=== PATIENT | male | born 1960 | race Caucasian/White ===

== ENCOUNTER → 2017-05-15 | Outpatient (CLI) | payer OTHER ==
--- NOTE | 2017-05-15 16:08 | RADIOLOGY REPORT PS360 ---
US SOFT TISSUE HEAD/NECK HISTORY: NECK MASS ORDERING PHYSICIAN: Alejo Torres MD PATIENT AGE: 56 years COMPARISON: None FINDINGS: Multiple hypoechoic areas are present in the lateral left neck at the region of the palpable abnormality the largest of which measures 1.7 x 0.9 cm. These are probably related to a chain of lymph nodes with some increased vascularity along the peripheral margin. Consider CT of the neck for further evaluation and confirmation. No cystic areas evident. IMPRESSION: Lymphadenopathy left lateral neck corresponding to palpable abnormality. Recommend CT of the neck without and with contrast for confirmation and to evaluate for deeper lymph nodes which may not be palpable or the source of the adenopathy
== END ==
LOC: RAD 15:17
DX: R22.1 Localized swelling, mass and lump, neck (principal)

== ENCOUNTER → 2017-06-07 | Outpatient (CLI) | payer OTHER ==
[2017-06-07 09:38] LABS: BUN 22 mg/dL (7-18); PROSTATE-SPECIFIC AG SCREEEN 0.3 ng/mL (0.0-4.0)
[2017-06-07 09:41] LABS: GFR (ESTIMATED) 63 ML/MIN (>60)
--- NOTE | 2017-06-07 11:51 | RADIOLOGY REPORT PS360 ---
CHEST(2 VIEWS-NOT PORTABLE) HISTORY: Smoker, left supraclavicular adenopathy SMOKER ORDERING PHYSICIAN: Nehemiah Quinones MD PATIENT AGE: 56 years COMPARISON: None available FINDINGS: There is normal heart size. There is a 4.5 x 5 cm spiculated left hilar mass highly suspicious for malignancy. There is additional fullness of the left hilum likely related to adenopathy. Hyperinflation with hyperattenuation of the lung ayoub consistent with COPD. No effusions. No acute bony anomalies. There is minimal mid thoracic curvature convex right. A bone plate is present of the lower cervical spine. IMPRESSION: 5 cm left hilar mass with left hilar adenopathy consistent with bronchogenic carcinoma. Suggest chest CT with contrast for further evaluation. COPD
--- NOTE | 2017-06-07 11:55 | RADIOLOGY REPORT PS360 ---
US BIOPSY OR PARACENTESIS, US SOFT TISSUE HEAD/NECK HISTORY: LT NECK MASS ORDERING PHYSICIAN: Nehemiah Quinones MD PATIENT AGE: 56 years COMPARISON: 05/15/2017 ULTRASOUND SOFT TISSUE NECK: Prebiopsy ultrasound performed confirming the presence of hypoechoic nodular lesions in the supraclavicular region on the left similar to the previous exam consistent with adenopathy. TECHNIQUE: Following obtaining informed consent, using aseptic technique and local anesthesia with buffered lidocaine, fine-needle aspiration was performed of the nodule of interest using sonographic guidance. 2 passes were made into the nodule with a 25-gauge needle for cytology. 2 passes were then made with a 25-gauge needle for RPMI. Specimen was given to cytology. The patient tolerated the procedure well without evidence of immediate complications and left the ultrasound suite in stable condition. CYTOLOGY:Pending IMPRESSION: Uneventful ultrasound-guided fine-needle aspiration of left supraclavicular nodes
--- NOTE | 2017-06-07 16:48 | RADIOLOGY REPORT PS360 ---
CT SOFT TISSUE NECK W/CONTRAST INDICATION: LT NECK MASS ORDERING PHYSICIAN: Nehemiah Quinones MD PATIENT AGE: 56 years COMPARISON: None TECHNIQUE: Axial images are obtained following the intravenous administration of 75 mg of Isovue-370 . Sagittal and coronal reformatted images are reviewed as well. FINDINGS: There is a chain of nodular opacities in the subcutaneous region of the left neck in the supraclavicular area measuring up to 16 x 12 mm superiorly and 15 9 mm inferiorly with a smaller 7 mm nodule between the 2 consistent with supraclavicular adenopathy. These nodes were sampled by FNA with ultrasound guidance. No other adenopathy is evident. No neck mass. The adenoids are slightly prominent.. There is a small retention cyst in left maxillary sinus inferiorly at 15 mm. The lung apices demonstrates centrilobular and paraseptal emphysematous changes. Mild biapical fibrotic changes are present. It should be noted that a chest x-ray performed on the same day showed a left hilar mass measuring approximately 5 cm highly suspicious for bronchogenic neoplasm. This was not included on the neck CT. Bone plate is present at C5, C6, and C7. IMPRESSION: 1. Mild left supraclavicular adenopathy. 2. Mild prominence of the adenoids. 3. Centrilobular and paraseptal emphysematous changes. There is a 5 cm left hilar mass noted on the chest x-ray highly suspicious for neoplasm which is not included on this exam
== END ==
LOC: RAD 08:25
PROVIDERS: Physician Assistant
DX: R59.1 Generalized enlarged lymph nodes (principal); R49.0 Dysphonia; Z72.0 Tobacco use
CPT/HCPCS: G0103

== ENCOUNTER → 2017-06-15 | Outpatient (CLI) | payer OTHER ==
[2017-06-15 14:24] LABS: BUN 15 mg/dL (7-18)
[2017-06-15 14:27] LABS: GFR (ESTIMATED) 69 ML/MIN (>60)
--- NOTE | 2017-06-17 08:27 | RADIOLOGY REPORT PS360 ---
CT CHEST W/ CONTRAST COMPARISON: PA and lateral chest 06/07/2017 HISTORY: Abnormal chest x-ray TECHNIQUE: Multiaxial scans obtained from the thoracic inlet the hemidiaphragms and were performed with IV contrast. Sagittal and coronal reformats were evaluated as well. FINDINGS: There is mild hyperexpansion lung ayoub with findings of mild centrilobular emphysema.. There is a large left suprahilar mass extending into the superior mediastinum. The mass extends in the AP window as well. At the level the AP window the mass measures 7.5 x 6.6 cm on the axial image x 9.5 cm superior inferior dimension. There are couple mildly enlarged nodes in the AP window. There are slightly enlarged subcarinal nodes as well. Cardiac size is normal. Is no pleural fluid. The adrenal glands are normal. IMPRESSION: Large left suprahilar and left upper lobe and superior sternal mass and this is bronchogenic carcinoma to proven otherwise.
== END ==
LOC: RAD 14:00
PROVIDERS: Nurse Practitioner Family
DX: R59.1 Generalized enlarged lymph nodes (principal)
CPT/HCPCS: Q9967